=== PATIENT | female | born 1960 | race Caucasian/White ===

== ENCOUNTER → 2016-11-17 | Outpatient (CLI) | payer BC | LOC: COL.RAD 07:26 | DX: M79.672 Pain in left foot (principal) | CPT/HCPCS: J3301; Q9967 ==

== ENCOUNTER → 2016-12-02 | Outpatient (CLI) | payer BC | LOC: COL.RAD 12:53 | DX: M79.672 Pain in left foot (principal) | CPT/HCPCS: J3301; Q9967 ==